=== PATIENT | male | born 1990 | race Two or more races ===

== ENCOUNTER 2025-01-06 21:40 | Emergency (ER) | payer OTHER, MEDICAID ==
[~2025-01-06] VITALS: Ht 167.6 cm; Wt 56.0 kg
[2025-01-06] MEDS: GLYCERIN ADULT RECTAL SUPP PR ONE (22:15)
--- NOTE | 2025-01-06 23:43 | DVH ---
Exam: CT CT AB PEL WO CON-NO ORAL OR IV History: fall Comparison Study: None Technique: Multidetector spiral CT of the abdomen was performed from lung bases to pubic symphysis. Imaging was performed without IV contrast. Axial, coronal and sagittal multiplanar reformats were obtained from the axial data set by the technologist. Radiation Dose : 1. Abdomen/Pelvis: CTDIvol 9.93 mGy, DLP 531.32 mGy*cm. Findings: Evaluation of solid organs is limited due to lack of intravenous contrast use. Beam hardening and streak artifact from arms down positioning further limits assessment. Lower Chest: No acute findings. Liver: Unremarkable. Gallbladder and Biliary Tree: Unremarkable Pancreas: Unremarkable. Spleen: Unremarkable. Adrenal Glands: Unremarkable. Kidneys/Ureters: No urinary stone or obstruction. Bladder: Grossly unremarkable for degree of distention. Pelvic Organs: Unremarkable Bowel: Normal caliber without wall thickening. No evidence of appendicitis. Vasculature: Unremarkable. Lymphadenopathy: No obvious adenopathy. Peritoneum: No ascites, free air, or fluid collection. Abdominal Wall: Right buttock and bilateral ischial full-thickness decubitus ulcers. Musculoskeletal: No evidence of acute fracture or dislocation. Left hip Girdlestone procedure. 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 IMPRESSION: 1. No acute injury or other finding of the abdomen or pelvis. 2. Chronic multifocal pelvic decubitus ulcers and osteomyelitis. Radiation optimization: All CT scans at this facility use at least one of these dose optimization techniques: automated exposure control mA and/or kV adjustment per patient size (includes targeted exams where dose is matched to clinical indication) or iterative reconstruction.
[2025-01-07] MEDS: BISACODYL 10 MG RECT SUPP PR ONE
[2025-01-07 00:43] LABS: Hematocrit 45.2 % (41.0-53.0); Hemoglobin 15.4 g/dL (13.5-17.5); Mean Corpuscular Hemoglobin 28.8 pg (28.0-32.0); Mean Corpuscular Volume 84.3 fL (80.0-100.0); Nucleated Red Blood Cells % 0.2 %
[2025-01-07 00:58] LABS: Alanine Aminotransferase 12 U/L (7-40); Albumin 4.3 g/dL (3.2-4.8); Alkaline Phosphatase 83 U/L (46-116); Anion Gap 10 (5-15); BUN/Creatinine Ratio 13.6 (10.0-20.0); Calcium 9.3 mg/dL (8.7-10.4); Carbon Dioxide 24 mmol/L (20-31); Chloride 106 mmol/L (98-107); Glucose 80 mg/dL (74-106); Potassium 3.5 mmol/L (3.5-5.1); Sodium 140 mmol/L (136-145); Total Protein 6.9 g/dL (5.7-8.2)
[2025-01-07 01:01] LABS: Bilirubin, Total 0.3 mg/dL (0.2-1.0); Blood Urea Nitrogen 6 mg/dL (9-23)
[2025-01-07] MEDS ORDERED: BISA10SU60 PR (01:22)
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
[2025-01-07 05:00] VITALS: BP 119/75; PULSE 62; RESP 18; TEMP 98.1; O2SAT 97
== END 2025-01-07 11:04 | disposition home or self-care (01) ==
LOC: ER 21:40 → EDBD 21:40 → ER 01-07 11:03
DX: K59.00 Constipation, unspecified (principal); Z88.6 Allergy status to analgesic agent; Z88.8 Allergy status to other drugs, medicaments and biological substances; Z79.899 Other long term (current) drug therapy
CPT/HCPCS: 36415; 74176; 80053; 83605; 85025